=== PATIENT | female | born 2000 | race Caucasian/White ===

== ENCOUNTER 2021-09-25 21:09 | Observation (INO) | payer MEDICAID ==
[~2021-09-25] VITALS: Ht 165.1 cm; Wt 65.9 kg
[2021-09-25 22:01] LABS: BASO # 0.1 K/mm3 (0.0-0.2); BASO % 0.7 % (0.0-2.0); EOS # 0.6 K/mm3 (0.0-0.7); EOS % 4.4 % (0.0-4.0); GRAN # 6.6 K/mm3 (1.4-6.5); GRAN % 49.9 % (42.2-75.2); LYMPH # 5.1 K/mm3 (1.2-3.4); LYMPH % 38.2 % (20.0-51.0); MEAN CELL VOLUME 80 fl (80.0-100.0); MEAN CORPUSCULAR HEMOGLOBIN 26 pg (27-31); MEAN CORPUSCULAR HGB CONC 32 g/dl (33.0-37.0); MEAN PLATELET VOLUME 9.5 fl (7.4-10.4); MONO # 0.9 K/mm3 (0.1-0.6); MONO % 6.5 % (1.7-9.3); PLATELET COUNT 445 K/mm3 (130-400); RED BLOOD COUNT 4.29 M/mm3 (4.10-5.30); REDCELL DISTRIBUTION WIDTH-CV 15.8 % (11.5-14.5)
[2021-09-25 22:06] LABS: HEMATOCRIT 34.2 % (37.0-47.0)
[2021-09-25 22:16] LABS: CALCIUM 9.4 mg/dL (8.4-10.2); CREATININE, serum 0.78 mg/dL (0.57-1.11); POTASSIUM 4.9 mmol/L (3.5-4.5)
[2021-09-26] VITALS (12 sets, daily range): BP systolic 100–124; BP diastolic 67–83; PULSE 16–97; TEMP 97.9–98.7
--- NOTE | 2021-09-26 00:05 | NUR ---
PT TO UNIT VIA WHEELCHAIR FROM ER. REPORT RECEIVED FROM BERYL RN IN THE ER. PT TO HOSPITAL WITH COMPLAINTS OF VAGINAL BLEEDING AND CONCERNS OF SAB AT 6-8 WEEKS. BERYL REPORTS PT HAS PASSED MULTIPLE BASEBALL SIZED CLOTS AND IS SATURATING BRIEFS Q HOUR. VS STABLE , PT IS TYPE 1 DIABETIC AND MOST RECENT BLOOD SUGAR OF 236. PT IS ADMINISTERING HER OWN INSULIN IN THE ER FOR ELEVATED BLOOD SUGAR. PER DR. KATE IN THE ER PT ORDERED TO BE ON SLIDING SCALE FOR INSULIN AND Q 4 BLOOD SUGAR CHECKS , PER DR. GOTTLIEB PT TO HAVE US IN THE MORNING AND POSSIBLE D&C TO FOLLOW, PT TO BE NPO, CONTINUOUS IVF, MONITOR VS AND WEIGH PERIPADS. ON ARRIVAL TO UNIT PT STATES THAT SHE TOOK 26 UNITS OF LANTUS, CURRENT BRIEF WAS APPLIED APPROXIMATELY 5 MINUTES AGO AND IS 50% SATURATED. VS WNL. PT STATES SHE HAS BEEN LIGHTHEADED AND DIZZY WHEN STANDING. INT IN R. AC. BRIEF REMOVED, CLEAN PERIPAD AND MESH UNDERWEAR APPLIED. PT INSTRUCTED TO CALL OUT WHEN NEEDING TO USE BATHROOM AND THAT WE WILL BE WEIGHING ALL PERIPADS. UNDERSTANDING VERBALIZED.
--- NOTE | 2021-09-26 02:05 | NUR ---
PT UP TO BATHROOM, ABLE TO VOID 300MLS. SMALL ORANGE SIZED CLOT IN HAT, ANOTHER HALF DOLLAR SIZED CLOT NOTED ON PERIPAD. BOTH CLOTS AND PERIPAD WEIGHED, 144 GMS.
--- NOTE | 2021-09-26 04:00 | NUR ---
Awakened for blood sugar. Reports "that medicine really helped. I even got some sleep" Pt up to bathroom stating "as long as you're in here" unable to void, peripad with [id number] stripe spotty red. peripad not changed. Denies cramping. Back to bed without difficulty.
[2021-09-26 05:51] LABS: BASO # 0.1 K/mm3 (0.0-0.2); BASO % 0.6 % (0.0-2.0); EOS # 0.7 K/mm3 (0.0-0.7); EOS % 6.1 % (0.0-4.0); GRAN # 5.6 K/mm3 (1.4-6.5); LYMPH # 4.6 K/mm3 (1.2-3.4); LYMPH % 39.3 % (20.0-51.0); MEAN CELL VOLUME 81 fl (80.0-100.0); MEAN CORPUSCULAR HGB CONC 32 g/dl (33.0-37.0); MEAN PLATELET VOLUME 9.2 fl (7.4-10.4); MONO # 0.7 K/mm3 (0.1-0.6); MONO % 5.6 % (1.7-9.3); RED BLOOD COUNT 3.23 M/mm3 (4.10-5.30); REDCELL DISTRIBUTION WIDTH-CV 15.7 % (11.5-14.5)
[2021-09-26 05:57] LABS: HEMATOCRIT 26.3 % (37.0-47.0); MEAN CORPUSCULAR HEMOGLOBIN 26 pg (27-31)
[2021-09-26 05:58] LABS: HEMOGLOBIN 8.4 g/dl (12.5-16.0); PLATELET COUNT 333 K/mm3 (130-400)
[2021-09-26 06:07] LABS: CALCIUM 8.5 mg/dL (8.4-10.2); CREATININE, serum 0.58 mg/dL (0.57-1.11)
--- NOTE | 2021-09-26 06:45 | NUR ---
0645-Dr. Browne on unit and in to see patient. 0724-Patient taken down to radiology for transvaginal U/S ordered. 0810-Patient returned to room and assisted back to bed.
[2021-09-26] MEDS ORDERED: LO LOESTRIN FE1 TAB PO (07:29)
[2021-09-26] MEDS ORDERED: NOVOLIN N100 UNIT/1 SQ (07:30)
--- NOTE | 2021-09-26 09:57 | NUR ---
Initial visit; Patient stated she is doing well and thanked [employer] for checking on her.
--- NOTE | 2021-09-26 10:00 | NUR ---
1000-Orders to proceed with D&C per Dr. Browne. Consent reviewed and signed. 1014-To OR via Wheelchair. 1035-D&C complete. Patient A&O x4. Transferred to bed and taken to room.
[2021-09-26] MEDS ORDERED: IBU600 MG PO (10:39)
[2021-09-26] MEDS ORDERED: NEURONTIN300 MG/CAP PO (10:39)
--- NOTE | 2021-09-26 10:45 | NUR ---
1045-Patient returns to room via bed after D&C, A&O x4 denies pain. No nausea. Vaginal bleeding scant. VSS, Recieved report from TIFFANIE Sams.
--- NOTE | 2021-09-26 14:50 | NUR ---
1450-Reviewed dishcarge insturctions and newly prescribed medications. Denies questions. Ambulatory off unit with family.
== END 2021-09-26 15:01 | disposition home or self-care (01) ==
LOC: COL.ER 21:09 → OB 23:01
PROVIDERS: Emergency Medicine; ADMIT Obstetrics & Gynecology
DX: O03.4 Incomplete spontaneous abortion without complication (principal); O99.012 Anemia complicating pregnancy, second trimester; D64.9 Anemia, unspecified; O24.012 Pre-existing type 1 diabetes mellitus, in pregnancy, second trimester; E10.65 Type 1 diabetes mellitus with hyperglycemia; Z3A.14 14 weeks gestation of pregnancy; Z79.4 Long term (current) use of insulin
CPT/HCPCS: G0378; J2270; J2405; J2704; J3010; J7030; J7120